=== PATIENT | female | born 1980 | race Caucasian/White ===

== ENCOUNTER 2018-09-21 08:18 | Outpatient (CLI) | payer OTHER ==
--- NOTE | 2018-09-21 19:22 | ULT ---
GALLBLADDER ULTRASOUND: Date: 09-21-18 FINDINGS: Ultrasonography of the right upper quadrant was performed for evaluation of right upper quadrant pain . The liver is enlarged measuring 17.7 cm in oblique sagittal length. It is slightly echo dense so ther e may be fatty infiltration. The gallbladder contains several gallstones within it. The wall thicknes s is 2 mm, which is normal. The common bile duct is 6 mm wide, which is upper normal to slightly enla rged. No stones were appreciated in the ducts. The right kidney appears normal and is 12.1 cm long. IMPRESSION: 1. Gallstones. 2. Hepatic enlargement and probable mild diffuse fatty infiltration. POS: HOME
== END 2018-09-21 08:19 | disposition home or self-care (01) ==
LOC: BURULT 08:18
PROVIDERS: ATTEND Family Medicine
DX: R10.11 Right upper quadrant pain (principal); K80.20 Calculus of gallbladder without cholecystitis without obstruction; R16.0 Hepatomegaly, not elsewhere classified
CPT/HCPCS: 76705

== ENCOUNTER 2019-04-13 09:45 | Outpatient (CLI) | payer OTHER ==
--- NOTE | 2019-04-13 17:56 | CT ---
CT OF THE ABDOMEN AND PELVIS WITH CONTRAST 04/13/[address] of the abdomen and pelvis was performed after injection of IV contrast. Oral contrast was a lso used. Axial slices were acquired, followed by coronal and sagittal reconstructions. Comparison is made with the prior CT dated 09/17/12. The lung bases are clear. The liver is a bit generous in size but no focal hepatic lesions were seen. The spleen and pancreas were unremarkable. I do not see a gallbladder . The adrenal glands, kidneys, and abdominal aorta showed no acute findings. There is thickening of the wall of most of the transverse colon and perhaps another segment in the si gmoid colon. Intervening bowel seems more normal in appearance. The small bowel seems unaffected. No loops are dilated to suggest obstruction. No free air or free fluid was seen. CT of the pelvis showed no pelvic masses, fluid collections, or inflammatory changes. There may be a 2.3 cm right adnexal cyst, but ultrasound would define this better. IMPRESSION: 1. Thickening of the wall of the transverse colon and to a lesser extent sigmoid colon. Colitis, whether infectious or inflammatory, should be considered. 2. Mild prominence of hepatic size but little adverse change consultant time. 3. Possible small right adnexal cyst. An elective ultrasound would be better at determining this or not. Code T POS: HOME
== END 2019-04-13 09:46 | disposition home or self-care (01) ==
LOC: BURCT 09:45
PROVIDERS: ATTEND Nurse Practitioner Family
DX: R10.11 Right upper quadrant pain (principal); R16.0 Hepatomegaly, not elsewhere classified; R53.83 Other fatigue; K63.89 Other specified diseases of intestine
CPT/HCPCS: 74177

== ENCOUNTER 2019-04-20 09:07 | Outpatient (CLI) | payer OTHER ==
--- NOTE | 2019-04-20 18:31 | ULT ---
PELVIC ULTRASOUND WITH ENDOVAGINAL IMAGIN04/20/[address] scan questioned a cyst in the right adnexal area. This ultrasound was done to investiga te the finding. There has been a prior hysterectomy. Both ovaries were visualized and appear normal. Both have blood flow. No adnexal cyst was apparent on today's scan. No free fluid was seen. The right ovary was 2.6 c m in length and the left was 1.8 cm. The technologist noted that the patient's bowel was quite active in its peristalsis. IMPRESSION: 1. Status post hysterectomy. 2. No cyst demonstrated. POS: HOME
--- NOTE | 2019-04-20 18:34 | RAD ---
CHEST TWO VIEWS 04/20/19 Comparison is made with a prior study dated 09/17/12. The heart is normal in size and the lungs are clear. No infiltrate or effusion was seen. The mediasti num appears normal. There is a vague 2 cm ovoid density just to the left of the heart shadow which is not seen on the ervin or study. I checked the recent CT scan and it did not go quite high enough to clear the area (it was an abdominal CT). I do not see this density definitively on the lateral view. IMPRESSION: 1. No acute findings. 2. Vague 2 cm ovoid density to the left of the heart. Seen only on the PA view. Given the patien t's young age, the odds of significance are somewhat low. I would recommend a follow-up chest x-ray i n one month. Code T POS: HOME
== END 2019-04-20 09:08 | disposition home or self-care (01) ==
LOC: BURULT 09:07
PROVIDERS: ATTEND Nurse Practitioner Family
DX: N94.9 Unspecified condition associated with female genital organs and menstrual cycle (principal); R10.11 Right upper quadrant pain; R19.7 Diarrhea, unspecified; R63.4 Abnormal weight loss; R93.3 Abnormal findings on diagnostic imaging of other parts of digestive tract; R93.1 Abnormal findings on diagnostic imaging of heart and coronary circulation; Z90.49 Acquired absence of other specified parts of digestive tract
CPT/HCPCS: 71046; 76856

== ENCOUNTER 2019-05-16 08:09 | Outpatient (CLI) | payer OTHER ==
--- NOTE | 2019-05-16 20:14 | CT ---
CT OF THE THORAX WITH CONTRAST: 05/16/[address] of the chest was compared with a prior chest film that questioned a vague nodular density to the left of the heart. A follow-up chest x-ray was suggested at that time. Today's exam was done with IV contrast and consists of axial, coronal and sagittal slices. There are no pulmonary nodules present. The lungs are clear. The density caused on the chest film mu st have been overlapping confluence of shadows. I see no obvious cause for the finding. The mediastin um appears normal. There is no sign of mass or adenopathy. The bony structures were unremarkable. The re may be a minimal hiatal hernia. The visible portions of the upper abdomen showed no acute findings . IMPRESSION: No acute thoracic findings. Specifically, no pulmonary nodule was seen. POS: HOME
== END 2019-05-16 08:10 | disposition home or self-care (01) ==
LOC: BURCT 08:09
PROVIDERS: ATTEND Internal Medicine Infectious Disease
DX: J98.4 Other disorders of lung (principal); R63.4 Abnormal weight loss
CPT/HCPCS: 71260

== ENCOUNTER 2019-08-02 21:27 | Emergency (ER) | payer OTHER ==
[2019-08-02 22:17] LABS: #Basophils 0.1 thou/uL (0.0-0.2); #Eosinphils 0.1 thou/uL (0.0-0.7); #Lymphocytes 1.1 thou/uL (1.20-3.40); #Monocytes 0.6 thou/uL (0.11-0.59); #Neutrophils 9.4 thou/uL (1.40-6.50); %Basophils 0.7 % (0.0-1.0); %Lymphocytes 9.8 % (21.0-51.0); %Monocytes 5.4 % (0.0-10.0); %Neutrophils 83.2 % (42.0-75.0); Hemoglobin 14.2 g/dL (12.0-16.0); Mean Corpuscular HGB CONC 33.5 g/dL (32.0-36.0); Mean Corpuscular Hemoglobin 28.6 pg (27.0-31.0); Mean Corpuscular Volume 85.5 fL (78.0-98.0); Mean Platelet Volume 7.1 fL (7.4-10.4); Platelet Count 314 thou/uL (130-400); RBC Distribution Width 13.6 % (11.5-14.5); Red Blood Cell (RBC) Count 4.96 mill/uL (4.20-5.40); White Blood Cell (WBC) Count 11.3 thou/uL (4.8-10.8)
[2019-08-02 22:32] LABS: ALT (SGPT) 22 U/L (8-55); AST (SGOT) 13 U/L (5-34); Albumin 4.7 g/dL (3.5-5.0); Alkaline Phosphatase 63 U/L (40-150); Anion Gap 20 mmol/L (10-20); BUN (Urea Nitrogen) 7 mg/dL (7.0-18.7); Bilirubin, Total 0.4 mg/dL (0.2-1.2); Calc. Creatinine Clearance 0 mL/min (70-130); Calcium 10.1 mg/dL (7.8-10.44); Carbon Dioxide 23 mmol/L (22-29); Chloride 100 mmol/L (98-107); Estimated GFR-MDRD 89; Globulin 2.6 g/dL (2.4-3.5); Glucose 93 mg/dL (70-105); Potassium 3.6 mmol/L (3.5-5.1); Protein, Total 7.3 g/dL (6.0-8.3); Sodium 139 mmol/L (136-145)
[2019-08-02 22:56] LABS: Bilirubin Negative (Negative); Blood, Urine Small (Negative); Glucose, Urine (Dipstick) Negative (Negative); Leukocyte Negative (Negative); Nitrite Negative (Negative); Protein, Urine (Dipstick) Negative (Neg-Trace); Urobilinogen 0.2 mg/dL (Less than 2)
[2019-08-02 22:57] LABS: Clarity Hazy (Clear)
[2019-08-02 23:05] LABS: Bacteria/HPF 1+ HPF (None Seen); Other Microscopic Description FEW CLUE CELLS; RBC/HPF 0-3 HPF (0-3); Squamous Epithelial 0-3 HPF (0-3); WBC/HPF 0-3 HPF (0-3)
== END 2019-08-02 23:05 | disposition home or self-care (01) ==
LOC: BURERS 21:27
DX: R07.89 Other chest pain (principal); F17.210 Nicotine dependence, cigarettes, uncomplicated; Z79.899 Other long term (current) drug therapy
CPT/HCPCS: 80053; 81003; 81015; 84484; 85025; 85379; 93005; 94760

== ENCOUNTER 2019-09-06 19:39 | Emergency (ER) | payer OTHER ==
--- NOTE | 2019-09-06 20:40 | RAD ---
PORTABLE CHEST: 09/06/19 An AP portable film at 2018 is compared with a 04/20/19 study. The heart remains normal in size and the lungs are clear. No acute infiltrate or effusion was seen. N o pulmonary nodules were appreciated today. The mediastinum appears normal. IMPRESSION: No acute findings. POS: HOME
[2019-09-06 20:48] LABS: ALT (SGPT) 20 U/L (8-55); AST (SGOT) 20 U/L (5-34); Albumin 4.1 g/dL (3.5-5.0); Alkaline Phosphatase 74 U/L (40-110); Anion Gap 15 mmol/L (10-20); BUN (Urea Nitrogen) Less than 4 mg/dL (7.0-18.7); Bilirubin, Total 0.3 mg/dL (0.2-1.2); Calc. Creatinine Clearance 0 mL/min (70-130); Calcium 9.4 mg/dL (7.8-10.44); Carbon Dioxide 27 mmol/L (22-29); Chloride 101 mmol/L (98-107); Estimated GFR-MDRD Greater than 90; Globulin 2.5 g/dL (2.4-3.5); Glucose 96 mg/dL (70-105); Potassium 3.7 mmol/L (3.5-5.1); Protein, Total 6.6 g/dL (6.0-8.3); Sodium 139 mmol/L (136-145)
[2019-09-06 20:50] LABS: Band 1 % (5-11); Eosinophils 2 % (0-10); Lymphocytes 15 % (21-51); MDiff Complete? YES; Mean Corpuscular HGB CONC 32.3 g/dL (32.0-36.0); Mean Corpuscular Hemoglobin 28.2 pg (27.0-31.0); Mean Corpuscular Volume 87.3 fL (78.0-98.0); Mean Platelet Volume 7.2 fL (7.4-10.4); Monocytes 11 % (0-10); Neutrophil 70 % (42-75); Platelet Count 273 thou/uL (130-400); RBC Distribution Width 13.2 % (11.5-14.5); Red Blood Cell (RBC) Count 4.99 mill/uL (4.20-5.40); White Blood Cell (WBC) Count 5.7 thou/uL (4.8-10.8)
[2019-09-06 22:57] LABS: Bilirubin Negative (Negative); Blood, Urine Small (Negative); Clarity Clear (Clear); Glucose, Urine (Dipstick) Negative (Negative); Leukocyte Negative (Negative); Nitrite Negative (Negative); Protein, Urine (Dipstick) Negative (Neg-Trace); Urobilinogen 0.2 mg/dL (Less than 2)
[2019-09-06 23:03] LABS: Squamous Epithelial 0-3 HPF (0-3); WBC/HPF None Seen HPF (0-3)
[2019-09-06 23:04] LABS: Bacteria/HPF 1+ HPF (None Seen)
== END 2019-09-06 23:07 | disposition home or self-care (01) ==
LOC: BURERS 19:39
DX: J20.9 Acute bronchitis, unspecified (principal); F17.210 Nicotine dependence, cigarettes, uncomplicated
CPT/HCPCS: 71045; 80053; 81003; 81015; 83605; 85025; 87040; 87086; 87804; 96361; 96365; J1956

== ENCOUNTER 2019-09-14 10:58 | Outpatient (CLI) | payer OTHER ==
--- NOTE | 2019-09-15 07:40 | ULT ---
ULTRASOUND OF THE RIGHT GROIN 09/14/19 Soft tissue ultrasound was obtained near the inguinal region where the lower extremity joins the tors o. The patient reports a palpable mass felt best while standing. Documentary images and worksheets we re provided and reviewed. The technologist did the scan both supine and standing. On some of the images there is a faintly rounded soft tissue structure measuring about 2.5 cm in size in an area of interest. It is difficult to assess whether it is part of the surrounding muscle, qiana factual or potentially a hernia. The technologist tried several times with the patient standing in [place], but could not confirm if the finding was actually a hernia or not. I did review the patient's prior CT abdomen and pelvis of 04/13/19. [facility], I cannot find any obvious hernia at that time. IMPRESSION: Inconclusive findings. Some images suggest a rounded soft tissue density appearing in the right groin but a definite hernia was not able to be confirmed. One might opt for a future CT of the region once again to see if there any change between the March 2019 study and now. POS: HOME
== END 2019-09-14 10:59 | disposition home or self-care (01) ==
LOC: BURULT 10:58
PROVIDERS: ATTEND Nurse Practitioner Family
DX: R19.09 Other intra-abdominal and pelvic swelling, mass and lump (principal)
CPT/HCPCS: 76999

== ENCOUNTER 2019-10-09 14:52 | Outpatient (CLI) | payer OTHER ==
[~2019-10-09 14:52] MED LIST: Iopamidol 370 76% 100 ML VIAL ONE
--- NOTE | 2019-10-09 15:52 | CT ---
CT of the pelvis: 10/09/2019 COMPARISON: None HISTORY: Mass in the right inguinal region TECHNIQUE: Axial CT imaging obtained at 5 mm intervals through the pelvis with IV and oral contrast. Coronal and sagittal reformatted imaging obtained. FINDINGS: No significant free fluid noted in the pelvis. Partially imaged bowel demonstrates no acute findings. Vascular structures appear patent. No inguinal lymphadenopathy noted on either side. Bilateral ovarian follicles/small cysts noted, righ t larger than left, measuring up to 2.0 cm. Review of the osseous structures of the pelvis demonstrate no acute findings. IMPRESSION: No CT findings to explain "mass" in the right inguinal region.
== END 2019-10-09 14:53 | disposition home or self-care (01) ==
LOC: BURCT 14:52
PROVIDERS: ATTEND Nurse Practitioner Family
DX: R19.09 Other intra-abdominal and pelvic swelling, mass and lump (principal)
CPT/HCPCS: 72193; Q9967

== ENCOUNTER 2019-10-20 04:44 | Emergency (ER) | payer OTHER ==
[2019-10-20 04:56] LABS: Bilirubin Small (Negative); Blood, Urine Large (Negative); Clarity Cloudy (Clear); Glucose, Urine (Dipstick) Negative (Negative); Leukocyte Large (Negative); Nitrite Positive (Negative); Protein, Urine (Dipstick) > or equal to 300 mg/dL (Neg-Trace)
[2019-10-20 05:05] LABS: Bacteria/HPF 2+ HPF (None Seen); RBC/HPF Greater than 50 HPF (0-3); Squamous Epithelial None Seen HPF (0-3); WBC/HPF Greater than 50 HPF (0-3); Yeast-Budding 1+ HPF (None Seen)
[2019-10-20] MEDS ORDERED: Phenazopyridine HCl 97.5 MG TABLET ONE (05:34)
[2019-10-20] MEDS ORDERED: Dicyclomine 20 MG TAB ONE (05:34)
[2019-10-20] MEDS ORDERED: Sulfameth/Trimethoprim DS 800-160mg TAB ONE (05:34)
== END 2019-10-20 05:39 | disposition home or self-care (01) ==
LOC: BURERS 04:44
DX: N30.01 Acute cystitis with hematuria (principal); F17.210 Nicotine dependence, cigarettes, uncomplicated; Z79.899 Other long term (current) drug therapy
CPT/HCPCS: 81003; 81015; 87077; 87086; 87186; 99283

== ENCOUNTER 2019-11-09 10:31 | Outpatient (CLI) | payer OTHER ==
--- NOTE | 2019-11-10 08:06 | ULT ---
RIGHT UPPER QUADRANT ULTRASOUND: DATE: 11/09/2019. FINDINGS: Ultrasonography of the right upper quadrant was done and compared with recent CT scans. The liver do es measure somewhat large, being about 18 cm in oblique sagittal length. Internally, it is somewhat echodense suggesting diffuse fatty infiltration. There is no sign of mass, ductal dilation, or other acute change. Portal venous blood flow is towards the liver as it should be. The gallbladder has been surgically removed. The common bile duct was not measured, but it is not at all large. The visible portions of the pancreas appear normal. The right kidney showed no acute fi ndings and was 10.7 cm in length. IMPRESSION: Hepatic enlargement with diffuse fatty infiltration. POS: HOME
== END 2019-11-09 10:32 | disposition home or self-care (01) ==
LOC: BURULT 10:31
PROVIDERS: ATTEND Internal Medicine Gastroenterology
DX: R16.0 Hepatomegaly, not elsewhere classified (principal); K76.0 Fatty (change of) liver, not elsewhere classified
CPT/HCPCS: 76705

== ENCOUNTER 2021-04-05 22:15 | Emergency (ER) | payer OTHER ==
[2021-04-05] MEDS ORDERED: Fentanyl 100 MCG/2 ML VIAL ONE ×3 (22:25→23:44)
[2021-04-05 22:48] LABS: #Basophils 0.1 thou/uL (0.0-0.2); #Eosinphils 0.1 thou/uL (0.0-0.7); #Lymphocytes 1.3 thou/uL (1.20-3.40); #Monocytes 0.4 thou/uL (0.11-0.59); #Neutrophils 4.4 thou/uL (1.40-6.50); %Basophils 1.7 % (0.0-1.0); %Eosinophils 2.3 % (0.0-10.0); %Monocytes 6.4 % (0.0-10.0); %Neutrophils 69.7 % (42.0-75.0); Hemoglobin 14.6 g/dL (12.0-16.0); Mean Corpuscular HGB CONC 34.5 g/dL (32.0-36.0); Mean Corpuscular Hemoglobin 29.9 pg (27.0-31.0); Mean Corpuscular Volume 86.7 fL (78.0-98.0); Mean Platelet Volume 8.1 fL (7.4-10.4); Platelet Count 317 thou/uL (130-400); RBC Distribution Width 11.9 % (11.5-14.5); Red Blood Cell (RBC) Count 4.89 mill/uL (4.20-5.40); White Blood Cell (WBC) Count 6.3 thou/uL (4.8-10.8)
[2021-04-05 23:08] LABS: ALT (SGPT) 27 U/L (8-55); AST (SGOT) 20 U/L (5-34); Albumin 4.4 g/dL (3.5-5.0); Alkaline Phosphatase 62 U/L (40-110); Anion Gap 14 mmol/L (10-20); BUN (Urea Nitrogen) 7 mg/dL (7.0-18.7); Bilirubin, Total 0.3 mg/dL (0.2-1.2); Calc. Creatinine Clearance 0 mL/min (70-130); Calcium 9.4 mg/dL (7.8-10.44); Carbon Dioxide 26 mmol/L (22-29); Chloride 105 mmol/L (98-107); Globulin 2.6 g/dL (2.4-3.5); Glucose 103 mg/dL (70-105); Lipase 32 U/L (8-78); Potassium 3.8 mmol/L (3.5-5.1); Sodium 141 mmol/L (136-145)
== END 2021-04-06 00:25 | disposition home or self-care (01) ==
LOC: BURERS 22:15
DX: R10.10 Upper abdominal pain, unspecified (principal); R10.817 Generalized abdominal tenderness; F17.210 Nicotine dependence, cigarettes, uncomplicated
CPT/HCPCS: 36415; 80053; 83690; 85025; 96374; 96376; J3010

== ENCOUNTER 2022-03-28 11:31 | Emergency (ER) | payer MEDICARE, OTHER ==
[2022-03-28 12:03] LABS: Bilirubin Negative (Negative); Blood, Urine Large (Negative); Clarity Clear (Clear); Glucose, Urine (Dipstick) Negative (Negative); Ketone, Urine Negative (Negative); Leukocyte Large (Negative); Nitrite Negative (Negative); Protein, Urine (Dipstick) Negative (Neg-Trace); Urobilinogen 0.2 mg/dL (Less than 2)
[2022-03-28 12:22] LABS: #Basophils 0.1 thou/uL (0.0-0.2); #Eosinphils 0.2 thou/uL (0.0-0.7); #Lymphocytes 0.8 thou/uL (1.20-3.40); #Monocytes 0.4 thou/uL (0.11-0.59); #Neutrophils 7.2 thou/uL (1.40-6.50); %Basophils 1.2 % (0.0-1.0); %Eosinophils 2.4 % (0.0-10.0); %Lymphocytes 9.3 % (21.0-51.0); %Neutrophils 82.1 % (42.0-75.0); Hemoglobin 15.6 g/dL (12.0-16.0); Mean Corpuscular HGB CONC 34.7 g/dL (32.0-36.0); Mean Corpuscular Hemoglobin 30.9 pg (27.0-31.0); Mean Corpuscular Volume 89.1 fL (78.0-98.0); Mean Platelet Volume 8.8 fL (7.4-10.4); Platelet Count 225 thou/uL (130-400); RBC Distribution Width 11.7 % (11.5-14.5); Red Blood Cell (RBC) Count 5.03 mill/uL (4.20-5.40); White Blood Cell (WBC) Count 8.7 thou/uL (4.8-10.8)
[2022-03-28 12:31] LABS: RBC/HPF 0-3 HPF (0-3)
[2022-03-28 12:32] LABS: Bacteria/HPF Rare-Few HPF (None Seen); Squamous Epithelial 0-3 HPF (0-3)
[2022-03-28 12:37] LABS: ALT (SGPT) 38 U/L (8-55); AST (SGOT) 31 U/L (5-34); Albumin 4.2 g/dL (3.5-5.0); Alkaline Phosphatase 65 U/L (40-110); Anion Gap 15 mmol/L (10-20); BUN (Urea Nitrogen) 6 mg/dL (7.0-18.7); Bilirubin, Total 0.7 mg/dL (0.2-1.2); Calc. Creatinine Clearance 0 mL/min (70-130); Calcium 9.2 mg/dL (7.8-10.44); Carbon Dioxide 26 mmol/L (22-29); Chloride 104 mmol/L (98-107); Globulin 2.3 g/dL (2.4-3.5); Glucose 95 mg/dL (70-105); Lipase 19 U/L (8-78); Potassium 3.9 mmol/L (3.5-5.1); Protein, Total 6.5 g/dL (6.0-8.3); Sodium 141 mmol/L (136-145)
[2022-03-28] MEDS ORDERED: cefTRIAXone\\ROCEPHIN 1 GM VIAL ONE (13:33)
[2022-03-28] MEDS ORDERED: Sterile Water 10 ML ONE (13:33)
== END 2022-03-28 13:53 | disposition home or self-care (01) ==
LOC: BURERS 11:31
DX: N39.0 Urinary tract infection, site not specified (principal); F17.210 Nicotine dependence, cigarettes, uncomplicated
CPT/HCPCS: 36415; 80053; 81003; 81015; 83605; 83690; 85025; 96372; 99283; J0696

== ENCOUNTER 2022-07-04 20:30 | Emergency (ER) | payer MEDICARE, MEDICAID ==
[2022-07-04] MEDS ORDERED: Lorazepam 2 MG/ML VIAL ONE (20:55)
[2022-07-04] MEDS ORDERED: Acetaminophen 500 MG TAB ONE (21:07)
[2022-07-04 21:11] LABS: ALT (SGPT) 53 U/L (8-55); AST (SGOT) 36 U/L (5-34); Albumin 5.2 g/dL (3.5-5.0); Alkaline Phosphatase 61 U/L (40-110); Anion Gap 28 mmol/L (10-20); BUN (Urea Nitrogen) 6 mg/dL (7.0-18.7); Bilirubin, Total 0.7 mg/dL (0.2-1.2); Calc. Creatinine Clearance 0 mL/min (70-130); Calcium 10.7 mg/dL (7.8-10.44); Carbon Dioxide 17 mmol/L (22-29); Chloride 104 mmol/L (98-107); Estimated GFR 91; Globulin 2.9 g/dL (2.4-3.5); Glucose 96 mg/dL (70-105); Potassium 4.5 mmol/L (3.5-5.1); Protein, Total 8.1 g/dL (6.0-8.3); Sodium 144 mmol/L (136-145)
[2022-07-04 21:17] LABS: Base Excess-Venous -8.1 mmol/L (-2.0 to 3.0); Bicarbonate (HCO3v) 18.8 mmol/L (22.0-28.0); CO2 Tension (PvCO2) 42.5 mmHg (42.0-51.0); Calcium, Ionized 1.13 mmol/L (1.15-1.33); Chloride 106 mmol/L (98-107); Potassium 4.1 mmol/L (3.5-5.1); Sodium 145 mmol/L (138-145); T. Carbon Dioxide 20.1 mmol/L (22.0-28.0); vO2 Saturation-calc 83.9 % (60.0-85.0)
[2022-07-04 21:26] LABS: #Basophils 0.2 thou/uL (0.0-0.2); #Eosinphils 0.4 thou/uL (0.0-0.7); #Lymphocytes 2.7 thou/uL (1.20-3.40); #Monocytes 0.8 thou/uL (0.11-0.59); %Basophils 1.8 % (0.0-1.0); %Eosinophils 3.8 % (0.0-10.0); %Monocytes 9.2 % (0.0-10.0); %Neutrophils 55.2 % (42.0-75.0); Hemoglobin 17.1 g/dL (12.0-16.0); Mean Corpuscular HGB CONC 35.3 g/dL (32.0-36.0); Mean Corpuscular Hemoglobin 30.7 pg (27.0-31.0); Mean Platelet Volume 8.2 fL (7.4-10.4); Platelet Count 305 thou/uL (130-400); RBC Distribution Width 11.8 % (11.5-14.5); Red Blood Cell (RBC) Count 5.56 mill/uL (4.20-5.40); White Blood Cell (WBC) Count 9.1 thou/uL (4.8-10.8)
[2022-07-04 21:41] LABS: CK (CPK) 73 U/L (29-168); Magnesium 2.1 mg/dL (1.6-2.6)
[2022-07-04 21:42] LABS: Bilirubin Negative (Negative); Blood, Urine Small (Negative); Clarity Clear (Clear); Glucose, Urine (Dipstick) Negative (Negative); Ketone, Urine Negative (Negative); Leukocyte Negative (Negative); Nitrite Negative (Negative); Protein, Urine (Dipstick) Negative (Neg-Trace); Specific Gravity, Urine 1.015 (1.005-1.030); Urobilinogen 0.2 mg/dL (Less than 2); pH, Urine 5.5 (5.0-9.0)
[2022-07-04 21:51] LABS: Bacteria/HPF Rare-Few HPF (None Seen); RBC/HPF 0-3 HPF (0-3); Squamous Epithelial 0-3 HPF (0-3); WBC/HPF None Seen HPF (0-3)
[2022-07-04 21:52] LABS: Base Excess-Venous -3.1 mmol/L (-2.0 to 3.0); Bicarbonate (HCO3v) 21.1 mmol/L (22.0-28.0); CO2 Tension (PvCO2) 34.3 mmHg (42.0-51.0); Chloride 106 mmol/L (98-107); Hemoglobin - Calc 12.9 g/dL (12.0-16.0); Potassium 3.2 mmol/L (3.5-5.1); Sodium 143 mmol/L (138-145); T. Carbon Dioxide 22.2 mmol/L (22.0-28.0)
== END 2022-07-04 22:48 | disposition home or self-care (01) ==
LOC: BURERS 20:30
DX: F45.8 Other somatoform disorders (principal); R50.9 Fever, unspecified; F17.210 Nicotine dependence, cigarettes, uncomplicated
CPT/HCPCS: 36415; 71045; 80053; 81003; 81015; 82330; 82550; 82803; 83605; 83735; 83880; 84484; 85025; 87040; 87086; 93005; 94760; 96374; J2060

== ENCOUNTER 2023-03-18 11:31 | Outpatient (CLI) | payer MEDICARE, OTHER | END 2023-03-18 11:32 | disposition home or self-care (01) | LOC: BURRAD 11:31 | PROVIDERS: ATTEND Family Medicine | DX: M54.12 Radiculopathy, cervical region (principal) | CPT/HCPCS: 72050 ==

== ENCOUNTER 2023-06-07 09:54 | Emergency (ER) | payer MEDICARE ==
[2023-06-07 10:24] LABS: #Basophils 0.1 thou/uL (0.0-0.2); #Eosinphils 0.1 thou/uL (0.0-0.7); #Lymphocytes 0.4 thou/uL (1.20-3.40); #Monocytes 0.4 thou/uL (0.11-0.59); #Neutrophils 2.6 thou/uL (1.40-6.50); %Basophils 2.2 % (0.0-1.0); %Eosinophils 1.9 % (0.0-10.0); %Lymphocytes 10.4 % (21.0-51.0); %Monocytes 12.1 % (0.0-10.0); %Neutrophils 73.4 % (42.0-75.0); Mean Corpuscular HGB CONC 34.1 g/dL (32.0-36.0); Mean Corpuscular Hemoglobin 29.5 pg (27.0-31.0); Mean Corpuscular Volume 86.7 fl (78.0-98.0); Mean Platelet Volume 6.7 fL (7.4-10.4); Platelet Count 216 10x3/uL (130-400); RBC Distribution Width 11.2 % (11.5-14.5); Red Blood Cell (RBC) Count 5.09 mill/uL (4.20-5.40); White Blood Cell (WBC) Count 3.6 10x3/uL (4.8-10.8)
[2023-06-07] MEDS ORDERED: Morphine 4 MG/ML VIAL ONE ×2 (10:36→12:00)
[2023-06-07] MEDS ORDERED: Ondansetron PF 4 MG/2 ML Vial ONE (10:36)
[2023-06-07 10:41] LABS: ALT (SGPT) 30 U/L (8-55); AST (SGOT) 26 U/L (5-34); Albumin 4.5 g/dL (3.5-5.0); Alkaline Phosphatase 53 U/L (40-110); Anion Gap 15 mmol/L (10-20); BUN (Urea Nitrogen) 5 mg/dL (7.0-18.7); Bilirubin, Total 0.6 mg/dL (0.2-1.2); Calc. Creatinine Clearance 0 mL/min (70-130); Calcium 9.7 mg/dL (7.8-10.44); Carbon Dioxide 27 mmol/L (22-29); Chloride 102 mmol/L (98-107); Estimated GFR 102; Globulin 2.5 g/dL (2.4-3.5); Glucose 99 mg/dL (70-105); Lipase 14 U/L (8-78); Potassium 3.5 mmol/L (3.5-5.1); Sodium 140 mmol/L (136-145)
[2023-06-07 10:53] LABS: Bilirubin Negative (Negative); Blood, Urine Small (Negative); Clarity Clear (Clear); Glucose, Urine (Dipstick) Negative (Negative); Ketone, Urine Negative (Negative); Leukocyte Negative (Negative); Nitrite Negative (Negative); Protein, Urine (Dipstick) Negative (Neg-Trace); Urobilinogen 0.2 mg/dL (Less than 2); pH, Urine 5.5 (5.0-9.0)
[2023-06-07 10:54] LABS: Pregnancy Test - Urine (BHCG) Negative (Negative); Pregu Control Background? CLEAR/WHITE (CLR/WHITE); Pregu Control Bar Appear? YES (CONTROL BAR); Specific Gravity 1.006 (1.002-1.036); Specific Gravity, Urine 1.006 (1.002-1.036)
[2023-06-07 10:59] LABS: Bacteria/HPF Rare-Few HPF (None Seen); CAUTI Indications for Culture Pelvic or flank pain; WBC/HPF None Seen HPF (0-3)
[2023-06-07 11:00] LABS: Urine Culture Reflex No No
[2023-06-07] MEDS ORDERED: Ketorolac Tromethamine 30 MG/ML VIAL ONE (11:59)
[2023-06-07] MEDS ORDERED: Iopamidol 370 76% 100 ML VIAL ONE (14:13)
== END 2023-06-07 12:22 | disposition home or self-care (01) ==
LOC: BURERS 09:54
DX: R10.31 Right lower quadrant pain (principal); F17.210 Nicotine dependence, cigarettes, uncomplicated
CPT/HCPCS: 74177; 80053; 81001; 81025; 83690; 85025; 96374; 96375; 96376; J1885; J2270; J2405; Q9967

== ENCOUNTER 2023-06-08 18:41 | Emergency (ER) | payer MEDICARE ==
[2023-06-08] MEDS ORDERED: Aspirin Chewable 81 MG TAB ONE (19:21)
[2023-06-08 19:32] LABS: Hemoglobin 14.4 g/dL (12.0-16.0); Mean Corpuscular HGB CONC 34.3 g/dL (32.0-36.0); Mean Corpuscular Hemoglobin 29.6 pg (27.0-31.0); Mean Corpuscular Volume 86.2 fl (78.0-98.0); Mean Platelet Volume 7.8 fL (7.4-10.4); Platelet Count 208 10x3/uL (130-400); RBC Distribution Width 11.2 % (11.5-14.5); Red Blood Cell (RBC) Count 4.86 mill/uL (4.20-5.40); White Blood Cell (WBC) Count 3.4 10x3/uL (4.8-10.8)
[2023-06-08 19:47] LABS: ALT (SGPT) 123 U/L (8-55); AST (SGOT) 101 U/L (5-34); Albumin 4.3 g/dL (3.5-5.0); Alkaline Phosphatase 79 U/L (40-110); Anion Gap 13 mmol/L (10-20); BUN (Urea Nitrogen) 5 mg/dL (7.0-18.7); Bilirubin, Total 0.5 mg/dL (0.2-1.2); CK (CPK) 72 U/L (29-168); Calc. Creatinine Clearance 0 mL/min (70-130); Calcium 9.5 mg/dL (7.8-10.44); Carbon Dioxide 28 mmol/L (22-29); Chloride 106 mmol/L (98-107); Estimated GFR 113; Globulin 2.2 g/dL (2.4-3.5); Glucose 94 mg/dL (70-105); Magnesium 1.8 mg/dL (1.6-2.6); Potassium 3.5 mmol/L (3.5-5.1); Protein, Total 6.5 g/dL (6.0-8.3); Sodium 143 mmol/L (136-145)
[2023-06-08 19:54] LABS: Band 3 % (5-11); Eosinophils 3 % (0-10); Lymphocytes 18 % (21-51); MDiff Complete? YES; Monocytes 18 % (0-10); Neutrophil 55 % (42-75); Platelet Adequacy Comment Appears Adequate
== END 2023-06-08 21:34 | disposition home or self-care (01) ==
LOC: BURERS 18:41
DX: R07.89 Other chest pain (principal); D72.819 Decreased white blood cell count, unspecified; F17.210 Nicotine dependence, cigarettes, uncomplicated
CPT/HCPCS: 71046; 80053; 82550; 83605; 83735; 83880; 84484; 85025; 93005; 94760

== ENCOUNTER 2023-08-01 21:56 | Emergency (ER) | payer MEDICARE ==
[2023-08-01] MEDS ORDERED: Morphine 4 MG/ML VIAL ONE ×2 (22:21→23:21)
[2023-08-01] MEDS ORDERED: Pantoprazole 40 MG VIAL ONE (22:22)
[2023-08-01] MEDS ORDERED: Ondansetron PF 4 MG/2 ML Vial ONE (22:22)
[2023-08-01] MEDS ORDERED: Ketorolac Tromethamine 30 MG/ML VIAL ONE (22:22)
[2023-08-01 22:28] LABS: #Basophils 0.1 thou/uL (0.0-0.2); #Eosinphils 0.5 thou/uL (0.0-0.7); #Lymphocytes 1.4 thou/uL (1.20-3.40); #Monocytes 0.6 thou/uL (0.11-0.59); #Neutrophils 4.9 thou/uL (1.40-6.50); %Basophils 1.3 % (0.0-1.0); %Eosinophils 6.2 % (0.0-10.0); %Lymphocytes 18.4 % (21.0-51.0); %Monocytes 7.8 % (0.0-10.0); %Neutrophils 66.3 % (42.0-75.0); Hematocrit 41.2 % (36.0-47.0); Hemoglobin 13.6 g/dL (12.0-16.0); Mean Corpuscular Volume 87.7 fl (78.0-98.0); Mean Platelet Volume 7.4 fL (7.4-10.4); Platelet Count 267 10x3/uL (130-400); RBC Distribution Width 11.2 % (11.5-14.5); White Blood Cell (WBC) Count 7.3 10x3/uL (4.8-10.8)
[2023-08-01 22:43] LABS: ALT (SGPT) 23 U/L (8-55); AST (SGOT) 28 U/L (5-34); Albumin 4.4 g/dL (3.5-5.0); Alkaline Phosphatase 42 U/L (40-110); Anion Gap 20 mmol/L (10-20); BUN (Urea Nitrogen) 17 mg/dL (7.0-18.7); Bilirubin, Total 0.6 mg/dL (0.2-1.2); Calc. Creatinine Clearance 0 mL/min (70-130); Calcium 10.1 mg/dL (7.8-10.44); Carbon Dioxide 23 mmol/L (22-29); Chloride 101 mmol/L (98-107); Estimated GFR 94; Globulin 2.6 g/dL (2.4-3.5); Glucose 105 mg/dL (70-105); Lipase 68 U/L (8-78); Potassium 4.2 mmol/L (3.5-5.1); Sodium 140 mmol/L (136-145)
[2023-08-01 23:29] LABS: Bilirubin Negative (Negative); Blood, Urine Negative (Negative); Clarity Clear (Clear); Glucose, Urine (Dipstick) Negative (Negative); Ketone, Urine Trace mg/dL (Negative); Leukocyte Negative (Negative); Nitrite Negative (Negative); Protein, Urine (Dipstick) Negative (Neg-Trace); Specific Gravity, Urine 1.015 (1.005-1.030); Urobilinogen 0.2 mg/dL (Less than 2); pH, Urine 8.5 (5.0-9.0)
[2023-08-01 23:52] LABS: Bacteria/HPF None Seen HPF (None Seen); CAUTI Indications for Culture Pelvic or flank pain; RBC/HPF None Seen HPF (0-3); Squamous Epithelial None Seen HPF (0-3); WBC/HPF None Seen HPF (0-3)
[2023-08-01 23:54] LABS: Urine Culture Reflex No No
== END 2023-08-02 00:18 | disposition home or self-care (01) ==
LOC: BURERS 21:56
DX: K52.9 Noninfective gastroenteritis and colitis, unspecified (principal); F17.210 Nicotine dependence, cigarettes, uncomplicated
CPT/HCPCS: 74177; 80053; 81001; 83605; 83690; 85025; 96374; 96375; 96376; C9113; J1885; J2270; J2405; Q9967

== ENCOUNTER 2024-01-04 18:06 | Emergency (ER) | payer OTHER, MEDICARE ==
[2024-01-04] MEDS ORDERED: Acetaminophen 500 MG TAB ONE (18:31)
[2024-01-04 18:34] LABS: #Basophils 0.1 thou/uL (0.0-0.2); #Eosinphils 0.1 thou/uL (0.0-0.7); #Lymphocytes 0.5 thou/uL (1.20-3.40); #Monocytes 0.5 thou/uL (0.11-0.59); #Neutrophils 5.5 thou/uL (1.40-6.50); %Basophils 1.6 % (0.0-1.0); %Eosinophils 1.4 % (0.0-10.0); %Lymphocytes 7.6 % (21.0-51.0); %Monocytes 7.3 % (0.0-10.0); %Neutrophils 82.1 % (42.0-75.0); Hematocrit 36.5 % (36.0-47.0); Hemoglobin 12.6 g/dL (12.0-16.0); Mean Corpuscular HGB CONC 34.6 g/dL (32.0-36.0); Mean Corpuscular Hemoglobin 27.8 pg (27.0-31.0); Mean Corpuscular Volume 80.4 fl (78.0-98.0); Mean Platelet Volume 8.2 fL (7.4-10.4); Platelet Count 251 10x3/uL (130-400); RBC Distribution Width 12.6 % (11.5-14.5); Red Blood Cell (RBC) Count 4.54 mill/uL (4.20-5.40); White Blood Cell (WBC) Count 6.7 10x3/uL (4.8-10.8)
[2024-01-04] MEDS ORDERED: Acetaminophen 650 MG Suppository ONE (18:37)
[2024-01-04 18:42] LABS: ALT (SGPT) 14 U/L (8-55); AST (SGOT) 16 U/L (5-34); Albumin 4.4 g/dL (3.5-5.0); Alkaline Phosphatase 52 U/L (40-110); Anion Gap 14 mmol/L (10-20); BUN (Urea Nitrogen) 10 mg/dL (7.0-18.7); Bilirubin, Total 0.5 mg/dL (0.2-1.2); Calc. Creatinine Clearance 0 mL/min (70-130); Calcium 9.3 mg/dL (7.8-10.44); Carbon Dioxide 24 mmol/L (22-29); Chloride 105 mmol/L (98-107); Estimated GFR 95; Globulin 2.5 g/dL (2.4-3.5); Glucose 102 mg/dL (70-105); Potassium 4.1 mmol/L (3.5-5.1); Protein, Total 6.9 g/dL (6.0-8.3); Sodium 139 mmol/L (136-145)
== END 2024-01-04 19:33 | disposition home or self-care (01) ==
LOC: BURERS 18:06
DX: R50.9 Fever, unspecified (principal); Z87.891 Personal history of nicotine dependence
CPT/HCPCS: 71045; 80053; 85025; 87081; 87430; 87804; 96360

== ENCOUNTER 2024-02-08 08:21 | Emergency (ER) | payer OTHER, MEDICARE | END 2024-02-08 08:53 | disposition home or self-care (01) | LOC: BURERS 08:21 | DX: H66.91 Otitis media, unspecified, right ear (principal); J01.00 Acute maxillary sinusitis, unspecified | CPT/HCPCS: 99282 ==

== ENCOUNTER 2024-06-27 19:45 | Emergency (ER) | payer OTHER, MEDICARE ==
[2024-06-27] MEDS ORDERED: fentaNYL 50 mcg/mL 1 mL Vial ONE (20:06)
[2024-06-27] MEDS ORDERED: Ketorolac Tromethamine 30 MG (1 mL) VIAL ONE (20:07)
[2024-06-27] MEDS ORDERED: Ondansetron PF 4 MG/2 ML Vial ONE (20:07)
[2024-06-27 20:13] LABS: #Basophils 0.1 thou/uL (0.0-0.2); #Eosinphils 0.4 thou/uL (0.0-0.7); #Lymphocytes 0.8 thou/uL (1.20-3.40); #Monocytes 0.4 thou/uL (0.11-0.59); #Neutrophils 2.6 thou/uL (1.40-6.50); %Basophils 2.4 % (0.0-1.0); %Eosinophils 8.7 % (0.0-10.0); %Lymphocytes 18.9 % (21.0-51.0); %Neutrophils 60.1 % (42.0-75.0); Hematocrit 35.7 % (36.0-47.0); Hemoglobin 12.1 g/dL (12.0-16.0); Mean Corpuscular HGB CONC 33.9 g/dL (32.0-36.0); Mean Corpuscular Hemoglobin 28.5 pg (27.0-31.0); Mean Corpuscular Volume 84.2 fl (78.0-98.0); Mean Platelet Volume 6.8 fL (7.4-10.4); Platelet Count 219 10x3/uL (130-400); RBC Distribution Width 11.9 % (11.5-14.5); Red Blood Cell (RBC) Count 4.24 mill/uL (4.20-5.40); White Blood Cell (WBC) Count 4.3 10x3/uL (4.8-10.8)
[2024-06-27 20:23] LABS: Prothrombin Time 13.6 sec (12.0-14.7)
[2024-06-27 20:24] LABS: PTT 29.6 sec (22.9-36.1)
[2024-06-27 20:31] LABS: ALT (SGPT) 18 U/L (8-55); AST (SGOT) 18 U/L (5-34); Albumin 3.9 g/dL (3.5-5.0); Alkaline Phosphatase 44 U/L (40-110); Anion Gap 14 mmol/L (10-20); BUN (Urea Nitrogen) 16 mg/dL (7.0-18.7); Bilirubin, Total 0.3 mg/dL (0.2-1.2); Calc. Creatinine Clearance 0 mL/min (70-130); Carbon Dioxide 22 mmol/L (22-29); Chloride 107 mmol/L (98-107); Estimated GFR 106; Globulin 2.1 g/dL (2.4-3.5); Glucose 92 mg/dL (70-105); Lipase 36 U/L (8-78); Potassium 3.8 mmol/L (3.5-5.1); Sodium 139 mmol/L (136-145)
[2024-06-27 20:32] LABS: BHCG - Serum Negative (NEGATIVE); Pregs Control Background? CLEAR/WHITE (CLR/WHITE); Pregs Control Bar Appear? YES (CONTROL BAR)
[2024-06-27 20:46] LABS: Bilirubin Negative (Negative); Blood, Urine Negative (Negative); Clarity Clear (Clear); Glucose, Urine (Dipstick) Negative (Negative); Ketone, Urine Negative (Negative); Leukocyte Negative (Negative); Nitrite Negative (Negative); Protein, Urine (Dipstick) Negative (Neg-Trace); Specific Gravity, Urine 1.015 (1.005-1.030); Urobilinogen 0.2 mg/dL (Less than 2); pH, Urine 7.5 (5.0-9.0)
[2024-06-27 20:54] LABS: Bacteria/HPF 1+ HPF (None Seen); CAUTI Indications for Culture Dysuria,urgency,freq; RBC/HPF None Seen HPF (0-3); Squamous Epithelial 0-3 HPF (0-3); WBC/HPF 0-3 HPF (0-3)
[2024-06-27 20:56] LABS: Urine Culture Reflex No No
== END 2024-06-27 21:40 | disposition home or self-care (01) ==
LOC: BURERS 19:45
DX: R10.10 Upper abdominal pain, unspecified (principal); R10.816 Epigastric abdominal tenderness
CPT/HCPCS: 36415; 74177; 80053; 81001; 83605; 83690; 84703; 85025; 85610; 85730; 93005; 94760; 96374; 96375; J1885; J2405; J3010

== ENCOUNTER 2024-07-22 15:14 | Emergency (ER) | payer OTHER, MEDICARE | END 2024-07-22 16:00 | disposition home or self-care (01) | LOC: BURERS 15:14 | DX: S93.505A Unspecified sprain of left lesser toe(s), initial encounter (principal); W23.1XXA Caught, crushed, jammed, or pinched between stationary objects, initial encounter ==

== ENCOUNTER 2024-07-27 13:42 | Outpatient (CLI) | payer OTHER, MEDICARE | END 2024-07-27 13:43 | disposition home or self-care (01) | LOC: BURRAD 13:42 | PROVIDERS: ATTEND Family Medicine | DX: M79.672 Pain in left foot (principal); M20.12 Hallux valgus (acquired), left foot; M21.172 Varus deformity, not elsewhere classified, left ankle ==

== ENCOUNTER 2025-10-05 14:52 | Emergency (ER) | payer BC, MEDICARE ==
[2025-10-05 15:51] LABS: #Basophils 0.2 thou/uL (0.0-0.2); #Eosinophils 0.3 thou/uL (0.0-0.7); #Lymphocytes 0.8 thou/uL (1.20-3.40); #Monocytes 0.6 thou/uL (0.11-0.59); #Neutrophils 4.3 thou/uL (1.40-6.50); %Basophils 2.5 % (0.0-1.0); %Eosinophils 4.2 % (0.0-10.0); %Lymphocytes 12.8 % (21.0-51.0); %Monocytes 9.8 % (0.0-10.0); %Neutrophils 70.7 % (42.0-75.0); Hematocrit 39.1 % (36.0-47.0); Hemoglobin 13.8 g/dL (12.0-16.0); Mean Corpuscular Hemoglobin 30.3 pg (27.0-31.0); Mean Corpuscular Volume 86.1 fl (78.0-98.0); Platelet Count 300 10x3/uL (130-400); Red Blood Cell (RBC) Count 4.54 mill/uL (4.20-5.40); White Blood Cell (WBC) Count 6.0 10x3/uL (4.8-10.8)
[2025-10-05 16:07] LABS: Troponin I 0.012 ng/mL (< 0.028)
[2025-10-05 16:08] LABS: ALT (SGPT) 15 U/L (Less than 34); AST (SGOT) 20 U/L (11-34); Albumin 4.3 g/dL (3.1-4.5); Alkaline Phosphatase 70 U/L (40-110); Anion Gap 16 mmol/L (10-20); BUN (Urea Nitrogen) 11 mg/dL (7.0-18.7); Bilirubin, Total 0.4 mg/dL (0.3-1.2); Calc. Creatinine Clearance 0 mL/min (70-130); Calcium 9.7 mg/dL (7.8-10.44); Carbon Dioxide 27 mmol/L (22-29); Chloride 103 mmol/L (98-107); Globulin 2.8 g/dL (2.4-3.5); Glucose 114 mg/dL (70-105); Lipase 38 U/L (8-78); Potassium 4.0 mmol/L (3.5-5.1); Sodium 142 mmol/L (136-145)
== END 2025-10-05 17:35 | disposition home or self-care (01) ==
LOC: BURERS 14:52
DX: R53.1 Weakness (principal); R06.00 Dyspnea, unspecified
CPT/HCPCS: 71260; 74177; 80053; 83605; 83690; 83880; 84484; 85025; 93005